=== PATIENT | female | born 1990 | race Caucasian/White ===

== ENCOUNTER 2022-08-28 10:28 | Emergency (ER) | payer OTHER, SELFPAY ==
[2022-08-28 10:38] VITALS: BP 148/95; PULSE 102; RESP 16; TEMP 37.3; O2SAT 99
--- NOTE | 2022-08-28 10:57 | ED.URI ---
HPI - URI/Sore Throat General Chief Complaint: Upper Respiratory Infection Stated Complaint: Sore Throat Time Seen by Provider: 08/28/22 10:57 History of Present Illness HPI Narrative: 32 y/o female presented for c/o sore throat, body aches, and ears hurt since yesterday. Reports mild sinus congestion/drainage and cough. Boyfriend tested positive for strep last week. She denies shortness of breath, wheezing, nausea, vomiting, diarrhea, fevers or chills. Not taking anything for symptoms. Related Data Allergies Allergy/AdvReac Type Severity Reaction Status Date / Time No Known Allergies Allergy Verified 08/28/22 10:31 Review of Systems Review of Systems: CONSTITUTIONAL: Denies fever, chills, or sweats. EYES: Denies visual changes, redness, or discharge. ENT: Reports rhinorrhea, congestion, sore throat, otalgia. CARDIOVASCULAR: Denies chest pain, palpitations, or edema. RESPIRATORY: Denies dyspnea. GASTROINTESTINAL: Denies abdominal pain, nausea, vomiting, or diarrhea. SKIN: Denies rash, itching, or wounds. MUSCULOSKELETAL: Denies back pain, joint pain, or myalgia. NEUROLOGIC: Denies headache PMFSH Past Medical History Medical History (Updated 08/28/22 @ 11:06 by Margie Jean-Baptiste, [employer]) No pertinent past medical history Exam Narrative: GENERAL: mildly Ill-appearing, no acute distress. EYES: conjunctivae clear ENT: Mucous membranes moist. TM pearly betancur with normal light reflex bilaterally; no tragal tenderness. Oropharynx erythematous without lesions. Tonsils enlarged 2+with exudate. No drooling, no hoarseness, no trismus, uvula midline. No tripod positioning, hot potato voice, or soft palate swelling. NECK: Supple. No lymphadenopathy CHEST: Clear to auscultation, breath sounds equal. No respiratory distress, speaks in full sentences. HEART: Regular rate and rhythm. No murmur heard. SKIN: Warm, dry, no rash. NEURO: Alert and oriented x3. Course Course Emergency Course: Patient is aware of diagnosis, understands and agrees to treatment plan. Anticipatory guidance given. Patient agrees to follow-up as directed and is aware of reasons to seek care at the emergency department. Portions of this record may have been created with voice recognition software Level of Care: Express Care Visit Vital Signs Vital signs: Vital Signs Temperature 99.2 F 08/28/22 10:38 Pulse Rate 102 H 08/28/22 10:38 Respiratory Rate 16 08/28/22 10:38 Blood Pressure 148/95 H 08/28/22 10:38 Pulse Oximetry 99 08/28/22 10:38 Oxygen Delivery Room Air 08/28/22 10:38 Temperature 99.2 F 08/28/22 10:38 Pulse Rate 102 H 08/28/22 10:38 Respiratory Rate 16 08/28/22 10:38 Blood Pressure 148/95 H 08/28/22 10:38 Pulse Oximetry 99 08/28/22 10:38 Oxygen Delivery Room Air 08/28/22 10:38 MDM - URI/Sore Throat MDM Narrative Medical decision making narrative: strep result reviewed with pt. Advise supportive treatments. Patient is appropriate for outpatient treatment and follow-up. Differential Diagnosis Differential diagnosis: Likely upper respiratory infection, viral infection and pharyngitis Discharge Plan Discharge Clinical Impression: Strep pharyngitis Patient Disposition: Home, Self-Care Condition: Stable Instructions: Antibiotic Form, Strep Throat (ED) Additional Instructions: - Take the antibiotic as directed. Fever and sore throat typically resolve within one to three days. Most patients can return to work, school after 12 to 24 hours of antibiotic therapy, provided you are fever free and otherwise well. -Eat and drink things that are easy to swallow, like soft foods, cool liquids, tea with honey, or popsicles . -Salt water gargles and/or may use topical anesthetic ( Chloraseptic spray) or lozenges to relieve dryness or throat pain -Alternate Tylenol and ibuprofen as needed for pain and fever as directed. -Frequent hand washing or hand filenet admin is one of the best ways to
== END 2022-08-28 11:11 | disposition home or self-care (01) ==
PROVIDERS: Emergency Provider Nurse Practitioner Family; PCP Internal Medicine
DX: J02.0 Streptococcal pharyngitis (principal)
CPT/HCPCS: 87880; 99213; G0463

== ENCOUNTER 2022-09-17 19:04 | Emergency (ER) | payer OTHER, SELFPAY ==
[2022-09-17 19:12] VITALS: BP 154/102; PULSE 128; RESP 16; TEMP 39.2; O2SAT 99
--- NOTE | 2022-09-17 19:31 | ED.URI ---
HPI - URI/Sore Throat General Chief Complaint: Upper Respiratory Infection Stated Complaint: sore throat Time Seen by Provider: 09/17/22 19:15 Source: patient Mode of arrival: ambulatory Limitations: no limitations History of Present Illness HPI Narrative: Jennifer is a 32-year-old female patient presenting to the clinic today with complaints of a sore throat and fever. She reports that she was tested and treated for strep last week however she has only taken 7 days worth of her antibiotics as they were making her nauseous and vomit. States that her throat is getting gradually worse. MD elicited complaint: sore throat Related Data Allergies Allergy/AdvReac Type Severity Reaction Status Date / Time No Known Allergies Allergy Verified 09/17/22 19:14 Review of Systems Review of Systems: Pertinent positives per HPI. Patient denies any fever, chills, rash, headache, visual changes, dizziness, cough, shortness of breath, chest pain, palpitations, nausea, vomiting, diarrhea, constipation, abdominal pain, or any urinary issues. PMFSH Past Medical History Medical History No pertinent past medical history Comments At the time of my signature, I reviewed and agree with the nursing past medical, surgical, social, and family history. There is no relevant family history pertinent to the patient complaint. Exam Narrative: General: Well-developed, well nourished, in no apparent distress Head: Normocephalic, atraumatic Eyes: Pupils equally round and reactive to light bilaterally, EOM intact, sclera and conjunctive clear, no discharge, lids normal Ears: TMs intact and clear, ear canals clear, no drainage, grossly hearing normal. Nose: Nares patent, no discharge, no inflammation, no sinus tenderness. Mouth: Oral pharynx red with bilateral tonsillar enlargement and white exudate to the left tonsil, no masses, good dentition, MMM. Neck: Supple, trachea midline, no enlargement of anterior or posterior cervical nodes, no thyroid masses or goiter palpable. Cardio: Regular rate and rhythm, s1 and s2 normal, no murmur appreciated. Resp: Clear to auscultation bilaterally, no rhonchi, rales, wheezing or rubs Course Course Emergency Course: Portions of this record may have been created with voice recognition software. Level of Care: Express Care Visit Vital Signs Vital signs: Vital Signs Temperature 39.2 C H 09/17/22 19:12 Pulse Rate 128 H 09/17/22 19:12 Respiratory Rate 16 09/17/22 19:12 Blood Pressure 154/102 H 09/17/22 19:12 Pulse Oximetry 99 09/17/22 19:12 Oxygen Delivery Room Air 09/17/22 19:12 Temperature 39.2 C H 09/17/22 19:12 Pulse Rate 128 H 09/17/22 19:12 Respiratory Rate 16 09/17/22 19:12 Blood Pressure 154/102 H 09/17/22 19:12 Pulse Oximetry 99 09/17/22 19:12 Oxygen Delivery Room Air 09/17/22 19:12 Vital signs reviewed MDM - URI/Sore Throat MDM Narrative Medical decision making narrative: At the time of visit patient is resting comfortably on exam table. Strep screen was obtained was positive. Prescription for azithromycin was sent to the pharmacy and supportive measures were discussed with the patient she voiced understanding of discharge instructions and agrees to treatment plan. Differential Diagnosis Differential diagnosis: Likely upper respiratory infection, sinusitis, viral infection, influenza, pharyngitis and other (COVID) Lab Data Labs: Strep Screen Positive Group A Strep *(Reference Range: Negative)* Discharge Plan Discharge Clinical Impression: Acute streptococcal pharyngitis Patient Disposition: Home, Self-Care Condition: Stable Instructions: Antibiotic Form, Strep Throat (ED) Additional Instructions: Take prescription medications only as prescribed-azithromycin Change your toothbrush in 24 hours after initiation of the antib
== END 2022-09-17 19:35 | disposition home or self-care (01) ==
PROVIDERS: Emergency Provider Nurse Practitioner Family
DX: J02.0 Streptococcal pharyngitis (principal)
CPT/HCPCS: 87880; 99213; G0463

== ENCOUNTER 2023-08-29 09:31 | Emergency (ER) | payer OTHER, SELFPAY ==
[2023-08-29] VITALS (13 sets, daily range): BP systolic 136–208; BP diastolic 86–119; PULSE 82–103; RESP 16–18; TEMP 36.3; O2SAT 97–100
--- NOTE | ~2023-08-29 | US_ITS ---
EXAMINATION: US right upper quadrant DATE: 08/29/2023 11:25 INDICATION: Abdominal pain TECHNIQUE: Multiple grayscale and Doppler ultrasound images of the abdomen were obtained. COMPARISON: None FINDINGS: The pancreatic head and body are normal in appearance. The pancreatic tail is not visualized. The vi sualized proximal to mid inferior vena cava is normal. Liver has normal echogenicity and contour, wit h a smooth surface. No liver lesion identified. No intrahepatic biliary duct dilation suspected. Port al venous flow was seen in the hepatopetal, normal direction and has normal Doppler waveform. The gal lbladder is normal in appearance. There is no cholelithiasis. The common bile duct measures 4-5 mm, which is normal. Sonographic Fisher sign was reported as negative by the friction welding machine operator.There is a porti on of the right kidney demonstrates normal contour and echogenicity with no hydronephrosis. IMPRESSION: 1. Normal right upper quadrant ultrasound. Reviewed, dictated and finalized at location A.
--- NOTE | 2023-08-29 09:49 | PC.NURSE ---
Pt states she has not taken her BP meds yet today.
[2023-08-29 10:24] LABS: Basophils Absolute Auto 0.1 K/mm3 (0.0-0.1); Basophils Percent Auto 0.9 % (0.2-1.2); Eosinophils Absolute Auto 0.1 K/mm3 (0-0.3); Eosinophils Percent Auto 1.7 % (0-4.4); Immature Granulocyte Absolute 0.02 K/mm3 (0.00-0.031); Immature Granulocyte Percent A 0.3 % (0-0.5); Lymphocytes Absolute Auto 0.94 K/mm3 (0.9-3.2); Lymphocytes Percent Auto 16.3 % (18.3-44.2); Mean Corpuscular HGB Conc 33.3 g/dl (32-36); Mean Corpuscular Hemoglobin 29.4 pg (26-34); Mean Corpuscular Volume 88.2 fl (80-100); Mean Platelet Volume 9.7 fl (7.4-10.4); Monocytes Absolute Auto 0.4 K/mm3 (0.1-0.6); Monocytes Percent Auto 7.7 % (2.6-8.5); Neutrophils Absolute Auto 4.2 K/mm3 (1.3-6.7); Neutrophils Percent Auto 73.1 % (45.5-73.1); Platelet Count Result 331 k/mm3 (150-375); Red Blood Count 4.08 M/mm3 (4.2-5.4); Red Cell Distribution Width 13.4 % (11.5-14.5); White Blood Count 5.8 K/mm3 (4.5-10.0)
[2023-08-29] MEDS: SODIUM CHLORIDE 0.9% IV 1,000 ML 999 ML IV CONT (10:38)
[2023-08-29] MEDS: KETOROLAC 30 MG/ML VIAL (*BKC) IV PUSH (10:39)
[2023-08-29 10:43] LABS: Alanine Aminotransferase 166 U/L (6-35); Albumin Level 4.4 g/dL (3.5-5.1); Alkaline Phosphatase 219 U/L (38-126); Anion Gap 8 mmol/L (8-16); Aspartate Amino Transferase 61 U/L (14-36); Bilirubin,Total 1.1 mg/dL (0.2-1.3); Blood Urea Nitrogen 12 mg/dL (7-17); Calcium 9.5 mg/dL (8.4-10.2); Carbon Dioxide 25 mmol/L (22-30); Chloride 104 mmol/L (98-107); Estimated CRCL calculation 135 ml/min; Estimated Glomerular Filt Rate > 60; Glucose 133 mg/dL (65-110); Sodium 137 mmol/L (137-145)
[2023-08-29 10:59] LABS: Influenza A QL RT-PCR Negative (Negative); Influenza B QL RT-PCR Negative (Negative); RSV RNA, RT-PCR Negative (Negative); SARS-CoV-2 RNA PCR Negative (Negative)
[2023-08-29 11:02] LABS: Lipase 316 U/L (23-300)
--- NOTE | 2023-08-29 11:09 | ED.GENADULT ---
HPI - General Adult General Chief complaint: Recheck/Abnormal Lab/Rx Stated complaint: Abnormal Blood Work Time Seen by Provider: 08/29/23 09:38 History of Present Illness HPI narrative: Patient is a 33-year-old female who presents ER with fatigue. Ongoing over the last week. She was seen by her primary care doctor yesterday and had outpatient lab work performed. She is found have elevated liver enzymes. She has no abdominal pain. No discomfort with eating or drinking. No fevers or chills or sweats. Patient does have some mild headache and reports mild joint aches. She has been taking ibuprofen with mild improvement. Related Data Allergies Allergy/AdvReac Type Severity Reaction Status Date / Time No Known Allergies Allergy Verified 09/17/22 19:14 Review of Systems Review of Systems: All systems reviewed & are unremarkable except as noted in HPI and below Constitutional: Constitutional: Reports no additional constitutional complaints ENT: Reports system reviewed and no additional complaints, except as documented Cardiovascular: Cardiovascular: Reports no additional cardiovascular complaints Respiratory: Respiratory: Reports no additional respiratory complaints Gastrointestinal: Gastrointestinal: Reports no additional gastrointestinal complaints Musculoskeletal: Musculoskeletal: Reports myalgias, Reports arthralgias and Denies joint swelling Integumentary/Breasts: Skin/Breast: Reports system reviewed and no additional complaints, except as docu [facility] Past Medical History Medical History (Updated 08/29/23 @ 14:44 by Christian Ragsdale MD) No pertinent past medical history Surgical History Surgical History (Updated 08/29/23 @ 11:13 by Christian Ragsdale MD) History of section Exam Narrative: GENERAL: Well-appearing, morbidly obese, and in no acute distress. HEAD: Normocephalic, atraumatic. EYES: PERRL and EOMI. ENT: Mucous membranes moist. CHEST: Clear to auscultation. No respiratory distress. HEART: Regular rate and rhythm. Normal peripheral pulses. ABDOMEN: Soft, nontender, nondistended. EXTREMITIES: Normal range of motion. No edema. No redness/swelling to joints of arms/legs. SKIN: Warm, dry, no rash. NEURO: Alert and oriented x3. PSYCH: Normal mood and affect. Course Course Emergency Course: Discussed lab results. Still with mild transaminitis. Suspect patient has a viral syndrome given her these symptoms over last week. Was also discussed at bedside viral syndrome could be related to a newly developed rheumatologic issue. Time will tell. Recommend scheduled naproxen at home and Tylenol for breakthrough pain. Recommend she follow-up with her PCP for further treatment and evaluation. I have also discussed doing daily blood pressure checks at home. Vital Signs Vital signs: Vital Signs Temperature 97.3 F L 08/29/23 09:33 Pulse Rate 103 H 08/29/23 09:33 Respiratory Rate 18 08/29/23 09:33 Blood Pressure 208/119 H 08/29/23 09:33 Pulse Oximetry 100 08/29/23 09:33 Oxygen Delivery Room Air 08/29/23 09:33 Temperature 97.3 F L 08/29/23 09:33 Pulse Rate 82 08/29/23 10:46 Respiratory Rate 16 08/29/23 10:46 Blood Pressure 152/101 H 08/29/23 10:46 Pulse Oximetry 100 08/29/23 10:46 Oxygen Delivery Room Air 08/29/23 09:33 Medical Decision Making Vital Signs Vital Signs: Vital Signs Temperature 97.3 F L 08/29/23 09:33 Pulse Rate 103 H 08/29/23 09:33 Respiratory Rate 18 08/29/23 09:33 Blood Pressure 208/119 H 08/29/23 09:33 Pulse Oximetry 100 08/29/23 09:33 Oxygen Delivery Room Air 08/29/23 09:33 Temperature 97.3 F L 08/29/23 09:33 Pulse Rate 82 08/29/23 10:46 Respiratory Rate 16 08/29/23 10:46 Blood Pressure 152/101 H 08/29/23 10:46 Pulse Oximetry 100 08/29/23 10:46 Oxygen Delivery Room Air 08/29/23 09:33 Lab Data 08/29/23 10:15 08/29/23 10:15 Labs: Lab
[2023-08-29 14:05] LABS: Monoscreen Negative (Negative); Negative Monotest Control Negative (Negative); Positive Monotest Control Positive (Positive)
[2023-08-29 15:01] LABS: Hepatitis B Surface Antigen Negative (Negative)
[2023-08-29 15:07] LABS: HAV RESULT Negative (Negative); Hepatitis B Core IgM Result Negative (Negative)
[2023-08-29 15:18] LABS: Hepatitis C Virus Antibody Negative (Negative)
== END 2023-08-29 15:04 | disposition home or self-care (01) ==
PROVIDERS: Emergency Provider Emergency Medicine; PCP Nurse Practitioner Family
DX: B34.9 Viral infection, unspecified (principal); M25.50 Pain in unspecified joint; Z20.822 Contact with and (suspected) exposure to COVID-19
CPT/HCPCS: 36415; 76705; 80053; 80074; 83690; 85025; 86308; 87637; 96361; 96374; 99284; J1885; J7030